=== PATIENT | female | born 1985 | race American Indian/Alaskan Native ===

== ENCOUNTER 2020-03-10 16:11 | Emergency (ER) | payer SELFPAY ==
[2020-03-10 16:38] VITALS: BP 136/85
--- NOTE | 2020-03-10 17:20 | Cat Scan Report ---
CT head/brain wo con INDICATION / CLINICAL INFORMATION: 34 years Female; tingling right face, RUE, CAMACHO, blurred vision. TECHNIQUE: Routine CT head without contrast. All CT scans at this location are performed using CT dos e reduction for ALARA by means of automated exposure control. COMPARISON: None. FINDINGS: BRAIN / INTRACRANIAL CONTENTS: No previous exams available for comparison. The brain parenchyma appea rs to demonstrate appropriate attenuation. The ventricular system is within normal limits in size and configuration. There is no clear CT evidence of acute intracranial hemorrhage or significant mass ef fect. ORBITS: No significant abnormality of visualized orbits. SINUSES / MASTOIDS: No significant abnormality in the visualized paranasal sinuses or mastoid air karissa ls. CRANIOCERVICAL JUNCTION: No significant abnormality. ADDITIONAL FINDINGS: None. IMPRESSION: 1. There is no CT evidence of acute intracranial process. Signer Name: Mohsen Juarez MD Signed: 03/10/2020 5:15 PM Workstation Name: [id number]
[2020-03-10 17:32] LABS: Basophils % (Auto) 1.1 % (0.0-1.8); Eosinophils % (Auto) 0.7 % (0.0-4.3); Hematocrit 36.7 % (30.3-42.9); Hemoglobin 12.2 gm/dl (10.1-14.3); Lymphocytes # (Auto) 1.9 K/mm3 (1.2-5.4); Lymphocytes % (Auto) 41.8 % (13.4-35.0); Mean Corpuscular HGB Conc 33 % (30-34); Mean Corpuscular Volume 81 fl (79-97); Monocytes # (Auto) 0.3 K/mm3 (0.0-0.8); Monocytes % (Auto) 5.7 % (0.0-7.3); Platelet Count 304 K/mm3 (140-440); Red Blood Count 4.51 M/mm3 (3.65-5.03); Red Cell Distribution Width 15.5 % (13.2-15.2)
[2020-03-10 17:36] LABS: Alanine Aminotransferase 16 units/L (7-56); Albumin 3.9 g/dL (3.9-5); BUN/Creatinine Ratio 17; Blood Urea Nitrogen 10 mg/dL (7-17); Calcium 9.3 mg/dL (8.4-10.2); Hemolysis Index 4
--- NOTE | 2020-03-10 18:07 | Emergency Department Report ---
ED General Adult HPI - General Chief complaint: Neuro Symptoms/Deficit Stated complaint: NUMBINESS RIGHT SIDE, BLURRY VISION Time Seen by Provider: 03/10/20 17:53 Source: patient Mode of arrival: Ambulatory Limitations: No Limitations - History of Present Illness Initial comments: Patient is a 34-year-old female presents emergency room with complaints of tingling in the right face and right upper extremity and then right eye blurry vision and then a headache that has been occurring for the last few months. She states that it is becoming more frequent. She denies any symptoms currently. She has not seen anyone for this. She states initially she thought it may do be due to her anxiety. She states that she always develops the symptoms first and then has a headache. She denies any nausea, vomiting, diarrhea, gait disturbance, speech disturbance, weakness. No other past medical history. No allergies to medications. She has a smoker and occasional drinker. Last menstrual cycle February 20. - Related Data Previous Rx's Medication Instructions Recorded Last Taken Type SUMAtriptan SUCCINATE [Imitrex] 25 mg PO Q2HR PRN #12 tablet 03/10/20 Unknown Rx Allergies Allergy/AdvReac Type Severity Reaction Status Date / Time No Known Allergies Allergy Verified 03/10/20 16:32 ED Review of Systems ROS: Stated complaint: NUMBINESS RIGHT SIDE, BLURRY VISION Other details as noted in HPI Comment: All other systems reviewed and negative ED Past Medical Hx - Past Medical History Previous Medical History?: No - Surgical History Past Surgical History?: No - Social History Smoking Status: Current Every Day Smoker Substance Use Type: Alcohol - Medications Home Medications: Home Medications Medication Instructions Recorded Confirmed Last Taken Type SUMAtriptan SUCCINATE [Imitrex] 25 mg PO Q2HR PRN #12 tablet 03/10/20 Unknown Rx ED Physical Exam - General Limitations: No Limitations General appearance: alert, in no apparent distress - Head Head exam: Present: atraumatic, normocephalic - Eye Eye exam: Present: normal appearance, PERRL, EOMI. Absent: periorbital swelling, periorbital tenderness Pupils: Present: normal accommodation - ENT ENT exam: Present: mucous membranes moist - Respiratory Respiratory exam: Present: normal lung sounds bilaterally. Absent: respiratory distress, wheezes, rales, rhonchi, stridor, chest wall tenderness, accessory muscle use, decreased breath sounds, prolonged expiratory - Cardiovascular Cardiovascular Exam: Present: regular rate, normal rhythm, normal heart sounds. Absent: systolic murmur, diastolic murmur, rubs, gallop - Neurological Exam Neurological exam: Present: alert, oriented X3, CN II-XII intact, normal gait, other (normal finger to nose, normal heel to le, 5/5 muscle strength in the BUE/BLE, normal tandem walking, sensation intact throughout, neurovascularly intact throughout, no focal neuro deficit). Absent: motor sensory deficit - Psychiatric Psychiatric exam: Present: normal affect, normal mood - Skin Skin exam: Present: warm, dry, intact ED Course Vital Signs 03/10/20 16:35 Temperature 99.1 F Pulse Rate 85 Respiratory 18 Rate Blood Pressure 136/85 O2 Sat by Pulse 99 Oximetry ED Medical Decision Making - Lab Data Result diagrams: 03/10/20 16:56 03/10/20 16:56 Lab Results 03/10/20 03/10/20 03/10/20 Range/Units 16:56 16:56 16:56 WBC 4.6 (4.5-11.0) K/mm3 RBC 4.51 (3.65-5.03) M/mm3 Hgb 12.2 (10.1-14.3) gm/dl Hct 36.7 (30.3-42.9) % MCV 81 (79-97) fl MCH 27 L (28-32) pg MCHC 33 (30-34) % RDW 15.5 H (13.2-15.2) % Plt Count 304 (140-440) K/mm3 Lymph % (Auto) 41.8 H (13.4-35.0) % [place] % (Auto) 5.7 (0.0-7.3) % Eos % (Auto) 0.7 (0.0-4.3) % Baso % (Auto) 1.1 (0.0-1.8) % Lymph # 1.9 (1.2-5.4) K/mm3 [place] # 0.3 (0.0-0.8) K/mm3 Eos # 0.0 (0.0-0.4) K/mm3 Baso # 0.0 (0.0-0.1) K/mm3 Seg Neutrophils % 50.7 (40.0-70.0) % Seg Neutrophils # 2.3 (1.8-7.7) K/mm3 Sodium 140 (137-145) mmol/L Potassium 3.9 (3.6-5.0) mmol/L Chloride 105.5 (98-107) mmol/L Carbon Dioxide 24 (22-30) mmol/L Anion Gap 14 mmol/L BUN 10 (7-17) mg/dL Creatinine 0.6 (0.6-1.2) mg/dL Estimated GFR > 60 ml/min BUN/Creatinine Ratio 17 % Glucose 96 (65-100) mg/dL Calcium 9.3 (8.4-10.2) mg/dL Magnesium 2.10 (1.7-2.3) mg/dL Total Bilirubin 0.20 (0.1-1.2) mg/dL AST 15 (5-40) units/L ALT 16 (7-56) units/L Alkaline Phosphatase 87 (35-129) units/L Total Protein 7.5 (6.3-8.2) g/dL Albumin 3.9 (3.9-5) g/dL Albumin/Globulin Ratio 1.1 % TSH 0.410 (0.270-4.200) mlU/mL HCG, Qual (Negative) 03/10/20 Range/Units 16:56 WBC (4.5-11.0) K/mm3 RBC (3.65-5.03) M/mm3 Hgb (10.1-14.3) gm/dl Hct (30.3-42.9) % MCV (79-97) fl MCH (28-32) pg MCHC (30-34) % RDW (13.2-15.2) % Plt Count (140-440) K/mm3 Lymph % (Auto) (13.4-35.0) % [place] % (Auto) (0.0-7.3) % Eos % (Auto) (0.0-4.3) % Baso % (Auto) (0.0-1.8) % Lymph # (1.2-5.4) K/mm3 [place] # (0.0-0.8) K/mm3 Eos # (0.0-0.4) K/mm3 Baso # (0.0-0.1) K/mm3 Seg Neutrophils % (40.0-70.0) % Seg Neutrophils # (1.8-7.7) K/mm3 Sodium (137-145) mmol/L Potassium (3.6-5.0) mmol/L Chloride (98-107) mmol/L Carbon Dioxide (22-30) mmol/L Anion Gap mmol/L BUN (7-17) mg/dL Creatinine (0.6-1.2) mg/dL Estimated GFR ml/min BUN/Creatinine Ratio % Glucose (65-100) mg/dL Calcium (8.4-10.2) mg/dL Magnesium (1.7-2.3) mg/dL Total Bilirubin (0.1-1.2) mg/dL AST (5-40) units/L ALT (7-56) units/L Alkaline Phosphatase (35-129) units/L Total Protein (6.3-8.2) g/dL Albumin (3.9-5) g/dL Albumin/Globulin Ratio % TSH (0.270-4.200) mlU/mL HCG, Qual Negative (Negative) - Radiology Data Radiology results: report reviewed CT head/brain wo con INDICATION / CLINICAL INFORMATION: 34 years Female; tingling right face, RUE, CAMACHO, blurred vision. TECHNIQUE: Routine CT head without contrast. All CT scans at this location are performed using CT dose reduction for ALARA by means of automated exposure control. COMPARISON: None. FINDINGS: BRAIN / INTRACRANIAL CONTENTS: No previous exams available for comparison. The brain parenchyma appears to demonstrate appropriate attenuation. The ventricular system is within normal limits in size and configuration. There is no clear CT evidence of acute intracranial hemorrhage or significant mass effect. ORBITS: No significant abnormality of visualized orbits. SINUSES / MASTOIDS: No significant abnormality in the visualized paranasal sinuses or mastoid air cells. CRANIOCERVICAL JUNCTION: No significant abnormality. ADDITIONAL FINDINGS: None. IMPRESSION: 1. There is no CT evidence of acute intracranial process. Signer Name: Mohsen Juarez MD Signed: 03/10/2020 5:15 PM Workstation Name: [id number] Transcribed By: MR Dictated By: Mohsen Juarez MD Electronically Authenticated By: Mohsen Juarez MD Signed Date/Time: 03/10/201714 DD/ 11 TD/TT: - Medical Decision Making Patient is a 34-year-old female presents emergency room with complaints of tingling in the right face and right upper extremity and then right eye blurry vision and then a headache that has been occurring for the last few months. She states that it is becoming more frequent. She denies any symptoms currently. She has not seen anyone for this. She states initially she thought it may do be due to her anxiety. She states that she always develops the symptoms first and then has a headache. She denies any nausea, vomiting, diarrhea, gait disturbance, speech disturbance, weakness. No other past medical history. No allergies to medications. She has a smoker and occasional drinker. Last menstrual cycle February 20. Normal. No abnormality on physical examination as documented in chart, no focal neuro deficits. visual acuity in the right eye is 20/25. Labs are normal. CT head: 1. There is no CT evidence of acute intracranial process. Patient has no symptoms currently. Patient could be having migraine with aura. Patient will be referred to neurology. Also advised patient to follow-up with primary care doctor and eye doctor. Patient given prescription for Imitrex. Advised patient Please take medication as prescribed. Please follow-up with a neurologist. Please follow-up with a an cinema operator. Please follow-up with a primary care doctor. Return to emergency room for any new or worsening symptoms. - Differential Diagnosis Mass, MS, SAH, subdural, electrolyte, complex migraine, anemia, thyroid dz Critical care attestation.: If time is entered above; I have spent that time in minutes in the direct care of this critically ill patient, excluding procedure time. ED Disposition Clinical Impression: Tingling of right arm and right side of face, Blurred vision Headache Qualifiers: Headache type: unspecified Headache chronicity pattern: acute headache Intractability: not intractable Qualified Code(s): R51 - Headache Disposition: DC-01 TO HOME OR SELFCARE Is pt being admited?: No Does the pt Need Aspirin: No Condition: Stable Instructions: Migraine Headache (ED), Paresthesia (ED) Additional Instructions: Please take medication as prescribed. Please follow-up with a neurologist. Pl ease follow-up with a an cinema operator. Please follow-up with a primary care doctor. Return to emergency room for any new or worsening symptoms. Prescriptions: SUMAtriptan SUCCINATE [Imitrex] 25 mg PO Q2HR PRN #12 tablet PRN Reason: headache Referrals: LUZMA WEBER MD [Referring] - 2-3 Days STEPHANIE MONTGOMERY MD [Staff Physician] - 2-3 Days JAG REBOLLEDO MD [Staff Physician] - 2-3 Days [facility] [Provider Group] - 2-3 Days KIT NUNO DO [Staff Physician] - 2-3 Days [facility] [Provider Group] - 2-3 Days Time of Disposition: 18:06 Print Language: ARMENIAN
== END 2020-03-10 18:31 | disposition home or self-care (01) ==
LOC: ED 16:11
DX: R51 Headache (principal); R20.2 Paresthesia of skin; H53.8 Other visual disturbances
CPT/HCPCS: 36415; 70450; 80053; 83735; 84443; 84703; 85025